=== PATIENT | female | born 1950 | race Caucasian/White ===

== ENCOUNTER 2018-12-06 15:47 | Emergency (ER) | payer BC, MEDICAID ==
[2018-12-06] MEDS: LORAZEPAM 2 MG INJ IV (16:26)
[2018-12-06] MEDS: MECLIZINE 12.5 MG TAB PO (16:26)
[2018-12-06] MEDS: SOD CHLORIDE 0.9% 1,000 ML IV (16:26)
== END 2018-12-06 18:17 | disposition home or self-care (01) ==
LOC: E/R 15:47
DX: H81.399 Other peripheral vertigo, unspecified ear (principal); D32.9 Benign neoplasm of meninges, unspecified; E11.9 Type 2 diabetes mellitus without complications; I10 Essential (primary) hypertension; Z79.84 Long term (current) use of oral hypoglycemic drugs
CPT/HCPCS: 70450; 82962; 96374; 99285-25